=== PATIENT | male | born 1930 | race Caucasian/White ===

== ENCOUNTER 2016-09-30 14:28 | Emergency (ER) | payer MEDICARE ==
[~2016-09-30] VITALS: Ht 172.7 cm; Wt 104.3 kg
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
== END 2016-09-30 17:33 | disposition home or self-care (01) ==
LOC: CED 14:28
DX: S60.552A Superficial foreign body of left hand, initial encounter (principal); I10 Essential (primary) hypertension; W34.010A Accidental discharge of airgun, initial encounter; Z23 Encounter for immunization
CPT/HCPCS: 73130; 90471; 90715; 99283